=== PATIENT | female | born 1995 | race Caucasian/White ===

== ENCOUNTER 2022-08-03 08:00 | Outpatient (CLI) | payer OTHER ==
[2022-08-03 16:09] LABS: BILIRUBIN,URINE NEGATIVE (NEGATIVE); GLUCOSE, URINE (UA) NEGATIVE (NEGATIVE); KETONES,URINE (UA) NEGATIVE (NEGATIVE); LEUKOCYTE ESTERASE, URINE NEGATIVE (NEGATIVE); NITRITE,URINE NEGATIVE (NEGATIVE); OCCULT BLOOD,URINE NEGATIVE (NEGATIVE); PROTEIN,URINE NEGATIVE (NEGATIVE); UROBILINOGEN,URINE 0.2 (NORMAL) E.U./dL (NORMAL)
[2022-08-03 16:17] LABS: BACTERIA,URINE Few /HPF (None Seen); CLARITY,URINE CLEAR (CLEAR); RBC,URINE None Seen /HPF (0-5); SQUAMOUS EPITHELIAL CELL,UR RARE Squamous (<= Few); WBC,URINE 0-3 /HPF (0-5)
== END 2022-08-03 23:59 | disposition home or self-care (01) ==
LOC: LAB.WC 08:00
PROVIDERS: ATTEND Nurse Practitioner
DX: Z34.90 Encounter for supervision of normal pregnancy, unspecified, unspecified trimester (principal)
CPT/HCPCS: 81001; 87086

== ENCOUNTER 2022-08-22 20:49 | Outpatient (CLI) | payer OTHER ==
--- NOTE | 2022-08-23 16:59 | Ultrasound Report ---
PROCEDURE: OB First Trimester w/TV INDICATIONS: POSITIVE TEST OUTSIDE/PRIOR DATING DATA: Last menstrual period (LMP): 06/12/2022. LMP-based estimated date of delivery (MAGNUS): 03/19/2023. First dating scan (date and location): 08/22/2022. Estimated date of delivery (MAGNUS) from first dating scan: 03/25/2023. TECHNIQUE: Real-time scanning was performed of the fetus and maternal pelvic organs, with image documentation. Endovaginal scanning was also performed to better visualize the fetus and maternal ovaries. COMPARISON: None FINDINGS: Embryo: Single live intrauterine is identified with crown-rump length measuring 2.5 cm cor responding to 9 weeks 2 days. There is a small subchorionic hemorrhage measuring 1.4 x 0.6 x 1.1 cm. Heart rate: 167 bpm Measurement variability in dating: +/- 4 weeks by LMP, +/- 7 days by mean sac diameter (use before 6 weeks gestation if crown-rump length not able to be measured), +/- 5 days by crown-rump length (6-12 weeks gestation). Maternal organs: Ovaries demonstrate a right corpus luteal cyst.. IMPRESSION: Single live intrauterine with ultrasound gestational age of 9 weeks 2 days. Recommend follow-up imaging at 20-22 weeks for dates and anatomy. Reviewed by: Temitope Ortiz MD on 08/23/2022 4:57 PM PDT Approved by: Temitope Ortiz MD on 08/23/2022 4:57 PM PDT Station ID: [id number]
== END 2022-08-22 20:50 | disposition home or self-care (01) ==
LOC: DI 20:49
PROVIDERS: ATTEND Nurse Practitioner
DX: Z34.91 Encounter for supervision of normal pregnancy, unspecified, first trimester (principal)

== ENCOUNTER 2022-08-25 08:00 | Outpatient (CLI) | payer OTHER ==
[2022-08-26 00:06] LABS: CHLAMYDIA TRACHOMATIS DNA NEGATIVE (NEGATIVE); NEISSERIA GONORRHOEAE DNA NEGATIVE (NEGATIVE); TRICHOMONAS VAGINALIS DNA NEGATIVE (NEGATIVE)
== END 2022-08-25 23:59 | disposition home or self-care (01) ==
LOC: LAB.WC 08:00
PROVIDERS: ATTEND Obstetrics & Gynecology
DX: Z11.3 Encounter for screening for infections with a predominantly sexual mode of transmission (principal)
CPT/HCPCS: 87491; 87591; 87661

== ENCOUNTER 2022-08-25 15:24 | Outpatient (CLI) | payer OTHER ==
[2022-08-25 15:41] LABS: BASOPHILS # (AUTO) 0.1 10^3/uL (0.0-0.1); BASOPHILS % (AUTO) 0.4 %; EOSINOPHILS # (AUTO) 0.2 10^3/uL (0.0-0.7); EOSINOPHILS % (AUTO) 1.1 %; HGB - HEMOGLOBIN 12.2 g/dL (12.0-16.0); LYMPHOCYTES # (AUTO) 3.1 10^3/uL (1.5-3.5); LYMPHOCYTES % (AUTO) 22.7 %; MEAN CORPUSCULAR VOLUME 88.1 fL (81.0-99.0); MEAN PLATELET VOLUME 8.9 fL (7.9-10.8); MONOCYTES # (AUTO) 0.7 10^3/uL (0.0-1.0); MONOCYTES % (AUTO) 5.2 %; NEUTROPHILS # (AUTO) 9.5 10^3/uL (1.5-6.6); NEUTROPHILS % (AUTO) 70.3 %; PLT - PLATELET COUNT 274 10^3/uL (130-450); RED CELL DISTRIBUTION WIDTH 12.3 % (12.0-15.0); WHITE BLOOD COUNT 13.5 x10^3/uL (4.8-10.8)
[2022-08-27 05:08] LABS: HCV AB Non Reactive (Non Reactive)
[2022-08-27 06:08] LABS: RPR Non Reactive (Non Reactive)
[2022-08-27 10:07] LABS: VARICELLA-ZOSTER AB IGG 1193 index (Immune >165)
[2022-08-28 02:06] LABS: HIV SCREEN 4TH GENERATION Non Reactive (Non Reactive)
[2022-08-28 08:09] LABS: HBsAG SCREEN Negative (Negative)
== END 2022-08-25 15:25 | disposition home or self-care (01) ==
LOC: LAB 15:24
PROVIDERS: ATTEND Nurse Practitioner
DX: Z34.90 Encounter for supervision of normal pregnancy, unspecified, unspecified trimester (principal)
CPT/HCPCS: 36415; 85025; 86592; 86762; 86787; 86803; 86850; 86900; 86901; 87340; 87389; 87491; 87591; 87661

== ENCOUNTER 2022-09-13 13:26 | Outpatient (CLI) | payer OTHER | END 2022-09-13 13:27 | disposition home or self-care (01) | LOC: LAB 13:26 | PROVIDERS: ATTEND Obstetrics & Gynecology | DX: Z36.89 Encounter for other specified antenatal screening (principal) ==

== ENCOUNTER 2022-10-20 16:30 | Outpatient (CLI) | payer OTHER ==
[2022-10-23 17:08] LABS: AFP MOM 0.91 (.); AFP VALUE 38.8 ng/mL (.); DIA MOM 0.71 (.); DIA VALUE 98.94 pg/mL (.); DSR (BY AGE) 1 IN 699 (.); DSR (SECOND TRIMESTER) 1 IN 5023 (.); GEST. AGE ON COLLECTION DATE 18.6 WEEKS (.); HCG MOM 1.19 (.); HCG VALUE 29097 mIU/mL (.); INSULIN DEP DIABETES No (.); OPEN SPINA BIFIDA RISK 1 IN 10000 (.); RACE Caucasian (.); RESULTS Report (.); TEST RESULTS *Screen Negative* (.); TRISOMY 18 RISK Not increased (.); UE3 MOM 0.87 (.); UE3 VALUE 1.35 ng/mL (.); WEIGHT 183 lbs (.)
== END 2022-10-20 16:31 | disposition home or self-care (01) ==
LOC: LAB 16:30
PROVIDERS: ATTEND Nurse Practitioner
DX: Z36.89 Encounter for other specified antenatal screening (principal); Z3A.18 18 weeks gestation of pregnancy
CPT/HCPCS: 36415; 81511

== ENCOUNTER 2022-11-06 14:57 | Outpatient (CLI) | payer OTHER ==
--- NOTE | 2022-11-06 19:36 | Ultrasound Report ---
PROCEDURE: OB Detailed Eval INDICATIONS: SUPERVISION OF OUTSIDE/PRIOR DATING DATA: Last menstrual period (LMP): 06/12/2022. LMP-based estimated date of delivery (MAGNUS): 03/19/2023. First dating scan (date and location): 08/22/2022. Estimated date of delivery (MAGNUS) from first dating scan: 03/25/2023. The below data below was generated using the ultrasound MAGNUS of 03/25/2023 TECHNIQUE: Real-time scanning was performed of the fetus, with image documentation and biometric measurements. COMPARISON: OB ultrasound 08/22/2022. FINDINGS: General: A single living intrauterine gestation is present. Presentation: Breech Placenta: Placental position is anterior, without previa. Amniotic fluid index: 13.9 cm, within normal limits for gestational age. Largest pocket 4.1 cm. heart rate: 152 beats per minute. Maternal cervical canal: 4.3 cm long; normal length is 2.5 cm or more. biometrics: Biparietal diameter: 4.7 cm, 20 weeks 0 days Head circumference: 17.7 cm, 20 weeks 1 day Abdominal circumference: 14.6 cm, 19 weeks 6 days Femur length: 3.3 cm, 20 weeks 2 days Estimated gestational age from initial scan: 20 weeks 1 day Composite gestational age from present scan: 20 weeks 1 day Estimated weight and percentile: 333 g, 43rd percentile. Measurement variability in biometric dating: +/- 10 days from 12-20 weeks gestation, +/- 2 weeks from 20-30 weeks gestation, +/- 3 weeks at 30 weeks gestation or later. Anatomic survey: Neuro: Ventricles are normal at less than 10 mm. Cisterna magna is normal at 3-11 mm. Cerebellum i s normal in size and morphology. Nuchal skin fold: Normal at less than 6 mm between 14 and 20 weeks gestational age. Face: Nose and lips, facial profile are normal. Spine: No evidence for spina bifida. Heart: 4-chambered heart is present, with normal ventricular outflow tracts. Diaphragm: Diaphragm is intact. Stomach: Left-sided stomach is present. Kidneys: No hydronephrosis. Normal is less than 5 mm in 2nd trimester, less than 7 mm in 3rd trimester. Cord: 3 vessel cord has orthotopic insertion. Bladder: Normal in size. Extremities: All 4 extremities are visualized. IMPRESSION: 1. Milton living intrauterine at 20 weeks 1 day based on today's ultrasound. This is con cordant with the first trimester ultrasound. There is expected interval growth. Fetus is in the 43rd percentile for weight. 2. Normal placenta and amniotic fluid. 3. Normal and complete anatomic survey. Reviewed by: Ruiz Rajan MD on 11/06/2022 7:35 PM PDT Approved by: Ruiz Rajan MD on 11/06/2022 7:35 PM PDT Station ID: [id number]
== END 2022-11-06 14:58 | disposition home or self-care (01) ==
LOC: DI 14:57
PROVIDERS: ATTEND Obstetrics & Gynecology
DX: Z34.92 Encounter for supervision of normal pregnancy, unspecified, second trimester (principal)

== ENCOUNTER 2022-12-19 10:17 | Outpatient (CLI) | payer OTHER ==
[2022-12-19 18:03] LABS: HCT - HEMATOCRIT 34.8 % (37.0-47.0); HGB - HEMOGLOBIN 11.4 g/dL (12.0-16.0); MEAN CORPUSCULAR HEMOGLOBIN 28.9 pg (27.0-31.0); MEAN CORPUSCULAR HGB CONC 32.8 g/dL (32.0-36.0); MEAN CORPUSCULAR VOLUME 88.3 fL (81.0-99.0); MEAN PLATELET VOLUME 9.3 fL (7.9-10.8); RED BLOOD COUNT 3.94 10^6/uL (4.20-5.40); RED CELL DISTRIBUTION WIDTH 12.5 % (12.0-15.0); WHITE BLOOD COUNT 13.8 x10^3/uL (4.8-10.8)
== END 2022-12-19 10:18 | disposition home or self-care (01) ==
LOC: LAB.N 10:17
PROVIDERS: ATTEND Obstetrics & Gynecology
DX: Z34.90 Encounter for supervision of normal pregnancy, unspecified, unspecified trimester (principal); Z36.89 Encounter for other specified antenatal screening
CPT/HCPCS: 36415; 82950; 85025; 85027

== ENCOUNTER 2023-03-08 08:00 | Outpatient (CLI) | payer OTHER ==
[2023-03-08 17:35] LABS: CREATININE,URINE 137.4 mg/dL; PROTEIN/CREATININE RATIO,URINE 0.2 (<=0.2)
== END 2023-03-08 23:59 | disposition home or self-care (01) ==
LOC: LAB 08:00
PROVIDERS: ATTEND Nurse Practitioner
DX: R03.0 Elevated blood-pressure reading, without diagnosis of hypertension (principal)
CPT/HCPCS: 82570; 84156

== ENCOUNTER 2023-03-14 21:39 | Outpatient (CLI) | payer OTHER ==
--- NOTE | 2023-03-15 13:07 | Ultrasound Report ---
PROCEDURE: OB F/U or Repeat INDICATIONS: UTERINE SIZE DATE DISCREPANCY OUTSIDE/PRIOR DATING DATA: Last menstrual period (LMP): 06/12/2022. LMP-based estimated date of delivery (MAGNUS): 03/19/2023. First dating scan (date and location): 08/22/2022. Estimated date of delivery (MAGNUS) from first dating scan: 03/25/2023. The below data below was generated using the ultrasound MAGNUS of 03/25/2023 TECHNIQUE: Real-time scanning was performed of the fetus, with image documentation and biometric measurements. Endovaginal scanning: Not performed. COMPARISON: 11/06/2022 FINDINGS: General: A single living intrauterine gestation is present. Presentation: Vertex Placenta: Placental position is anterior, without previa. Amniotic fluid index: 19.7 cm, within normal limits for gestational age. heart rate: 144 beats per minute. Maternal cervical canal not well visualized. biometrics: Biparietal diameter: 9.59 cm, 39 weeks 1 day Head circumference: 34.19 cm, 39 weeks 3 days Abdominal circumference: 35.95 cm, 39 weeks 6 days Femur length: 6.96 cm, 35 weeks 5 days Estimated gestational age from initial scan: 38 weeks 3 days Composite gestational age from present scan: 38 weeks 4 days Estimated weight and percentile: 3615.9 g, 76th percentile Measurement variability in biometric dating: +/- 10 days from 12-20 weeks gestation, +/- 2 weeks from 20-30 weeks gestation, +/- 3 weeks at 30 weeks gestation or more. Other: Not applicable. IMPRESSION: Single living intrauterine at 38 weeks 3 days, MAGNUS of 03/25/2023. Estimated weight of 3616 g, 76th percentile. Reviewed by: Wade Cheng on 03/15/2023 1:06 PM PDT Approved by: Wade Cheng on 03/15/2023 1:06 PM PDT Station ID: [id number]
== END 2023-03-14 21:40 | disposition home or self-care (01) ==
LOC: DI 21:39
PROVIDERS: ATTEND Nurse Practitioner
DX: O26.843 Uterine size-date discrepancy, third trimester (principal); Z3A.38 38 weeks gestation of pregnancy

== ENCOUNTER 2023-03-16 06:12 | Inpatient (IN) | payer OTHER ==
[2023-03-16] MEDS ORDERED: LACTATED RINGERS 1,000 ML ONE (06:36)
[2023-03-16] MEDS ORDERED: AMPICILLIN 2 GM VIAL IV ONE (06:41)
[2023-03-16] MEDS ORDERED: METHYLERGONOVINE 0.2 MG/ML VIAL IM PRN (06:48)
[2023-03-16] MEDS ORDERED: fentaNYL 100 MCG/2 ML VIAL IVP PRN (06:48)
[2023-03-16] MEDS ORDERED: SODIUM CHLORIDE FLUSH 0.9% 10 ML SYRINGE IVP PRN (06:48)
[2023-03-16] MEDS ORDERED: NIFEdipine 10 MG CAPSULE PO PRN (06:48)
[2023-03-16] MEDS ORDERED: miSOPROStoL 200 MCG TABLET BC PRN (06:48)
[2023-03-16] MEDS ORDERED: lidocaine 1% 20 ML MDV ID PRN (06:48)
[2023-03-16] MEDS ORDERED: TERBUTALINE 1 MG/ML VIAL SUBQ PRN (06:48)
[2023-03-16] MEDS ORDERED: OXYTOCIN 10 UNIT/ML VIAL IM PRN (06:48)
[2023-03-16] MEDS ORDERED: LABETALOL 20 MG/4 ML SYRINGE IVP PRN ×3 (06:48)
[2023-03-16] MEDS ORDERED: TRANEXAMIC ACID IN NACL 1,000 MG/100 ML BAG IV PRN (06:48)
[2023-03-16] MEDS ORDERED: CARBOPROST TROMETHAMINE 250 MCG/ML AMP IM PRN (06:48)
[2023-03-16] MEDS ORDERED: hydrALAZINE INJ 20 MG/ML VIAL IVP PRN ×2 (06:48)
[2023-03-16] MEDS ORDERED: miSOPROStoL 200 MCG TABLET PR PRN (06:48)
[2023-03-16] MEDS ORDERED: OXYTOCIN/SODIUM CHLORIDE 500 ML IV ONE (06:49)
[2023-03-16] MEDS ORDERED: lidocaine 1% 20 ML MDV ONE (06:49)
[2023-03-16] MEDS ORDERED: SODIUM CHLORIDE FLUSH 0.9% 10 ML SYRINGE IVP SCH (07:00)
[2023-03-16] MEDS ORDERED: MINERAL OIL LIGHT 10 ML ONE (07:00)
[2023-03-16 07:15] LABS: BASOPHILS # (AUTO) 0.1 10^3/uL (0.0-0.1); BASOPHILS % (AUTO) 0.3 %; EOSINOPHILS # (AUTO) 0.1 10^3/uL (0.0-0.7); EOSINOPHILS % (AUTO) 0.5 %; HCT - HEMATOCRIT 37.5 % (37.0-47.0); HGB - HEMOGLOBIN 12.3 g/dL (12.0-16.0); LYMPHOCYTES % (AUTO) 15.7 %; MEAN CORPUSCULAR HEMOGLOBIN 26.9 pg (27.0-31.0); MEAN CORPUSCULAR HGB CONC 32.8 g/dL (32.0-36.0); MEAN CORPUSCULAR VOLUME 81.9 fL (81.0-99.0); MEAN PLATELET VOLUME 9.6 fL (7.9-10.8); MONOCYTES # (AUTO) 0.8 10^3/uL (0.0-1.0); MONOCYTES % (AUTO) 4.3 %; NEUTROPHILS # (AUTO) 15.1 10^3/uL (1.5-6.6); NEUTROPHILS % (AUTO) 78.7 %; PLT - PLATELET COUNT 314 10^3/uL (130-450); RED BLOOD COUNT 4.58 10^6/uL (4.20-5.40); RED CELL DISTRIBUTION WIDTH 13.4 % (12.0-15.0); WHITE BLOOD COUNT 19.1 x10^3/uL (4.8-10.8)
[2023-03-16] MEDS: OXYTOCIN/SODIUM CHLORIDE 500 ML IV PRN ×2 (07:43→08:30)
[2023-03-16] MEDS: ACETAMINOPHEN 500 MG TABLET PO SCH (08:45)
[2023-03-16] MEDS ORDERED: IBUPROFEN 600 MG TABLET PO PRN (08:45)
[2023-03-16] MEDS ORDERED: ONDANSETRON ODT 4 MG TABLET TL PRN (08:45)
[2023-03-16] MEDS ORDERED: WITCH HAZEL/GLYCERIN 1 PAD TOP PRN (08:45)
[2023-03-16] MEDS ORDERED: ONDANSETRON 4 MG/2 ML VIAL IVP PRN (08:45)
[2023-03-16] MEDS ORDERED: LACTATED RINGERS 1,000 ML IV PRN (08:45)
[2023-03-16] MEDS: IBUPROFEN 600 MG TABLET PO SCH ×3 (08:45→20:56)
--- NOTE | 2023-03-16 09:11 | DELIVERY NOTE ---
Delivery Note - Labor Labor: positive: Spontaneous - Delivery Method Delivery Method: positive: Vacuum assist - Presentation Presentation: positive: Vertex - Nuchal Cord Nuchal Cord: positive: Reduced - Anesthetic Anesthetic: positive: Lidocaine - 1% plain Volume: positive: Other (10cc) - Amniotic Fluid Description Amniotic Fluid Description: positive: Other (terminal meconium) - Vacuum Use Indication for Vacuum Use: positive: Suspicion of immediate or potential compromise Type of Vacuum Cup: positive: Cup: Mitchell Type, Cup: Soft Vacuum Extraction: positive: Successful Number of pop-offs: 0 - Episiotomy Type Episiotomy Type: positive: None - Laceration Laceration: positive: 2nd degree, Perineal - Suture Suture Type: positive: Vicryl Suture Size: positive: 2-0 - Delivery Outcome Delivery Outcome: positive: Livebirth - : positive: Placed in direct skin contact with mother, Stimulated, Orange used sex: positive: Female - Cord Cord: positive: 3 vessels - Placenta Placenta: positive: Intact, Spontaneous - Estimated Blood Loss Estimated Blood Loss (in cc): 1,250 - Post Delivery Events Post Delivery Events: positive: Hemorrhage, Shoulder dystocia - Delivery Comments (Free Text/Narrative) Delivery Comments (Free Text/Narrative): On 16 Mar 2023 at 0733 patient delivered a viable female infant over intact perineum. Prior to delivery baby had terminal bradycardia, FSE applied, terminal bradycardia verified, vacuum applied at 0731 and with coordinated pushing and no pop-offs infants head delivered at 0731. Nuchal noted and reduced. Baby LOT, shoulder dystocia noted and pt placed in jian position, suprapubic pressure applied towards maternal R, and R anterior shoulder delivered. Body delivered without difficulty, baby with tone and crying spontanenously, placed on maternal abdomen, apgars 7/9. Cord clamped and cut x2. Placenta delivered spontaneously at 0743 with immediate brisk red bleeding. PPH called and pitocin opened, fundal massage, methergine given. Cervix walked out to ensure no cervical laceration. Bleeding controlled with above. 2' laceration repaired with 2.0 vicryl. hemostatic after repair. additional fundal massage affirmed no further atony. QBL 1250. Both mom and baby recovering well. All counts correct. Stage 1: 5h1m Stage 2: 45m Stage 3: 10m
--- NOTE | 2023-03-16 13:06 | HISTORY & PHYSICAL EXAMINATION ---
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 ANC c/b: 1. depression / anxiety - on sertraline 2. anemia in -- HgB today 12+ -- on iron 3. GBS+, -- not treated adequately, peds aware 4. S>D at last appointment. ANL: A+/abneg/RI/RPRNR/HepBneg/HIVneg/GCCTnegneg/GBS positive PMH: denies PSH: denies POB: G1 PGYN: no h/o abnormal pap no h/o STDs no h/o problems with ovaries or uterus pt with regular monthly periods, when not Meds: PNV, All: NKDA Soc: neg x3, FOB mariann, he is here and present Fam: skin CA VSS NAD Conjunctiva pink, pale sclera +S1, S2, CTAB, no increased work of breathing Abd soft, NT, ND, visibly gravid at term [place]: cephalic EFM: 120mod oral + A cells no D cells, reactive [place]: Q3 Cx: 8cms per RN, was complete upon MD arrival Ext: neg CCE - HPI Current EDU 03/19/23 Gestation 39 Weeks and 4 Days 1 Vital Signs Temperature 98.6 F 03/16/23 10:19 Temperature 99.1 F 03/16/23 12:55 Heart Rate 74 03/16/23 12:55 Respiratory Rate 18 03/16/23 12:55 Blood Pressure 124/64 03/16/23 12:55 O2 Saturation If not protocol: Oxygen Flow, liters/minute Meds/Allgy - Allergies Allergies/Adverse Reactions: Allergies Allergy/AdvReac Type Severity Reaction Status Date / Time No Known Drug Allergies Allergy Verified 03/16/23 07:17 Physical - Abdominal Exam Vital Signs: Temp Pulse Resp BP Pulse Ox O2 Flow Rate 99.1 F 74 18 124/64 03/16/23 12:55 03/16/23 12:55 03/16/23 12:55 03/16/23 12:55 Plan for Labor - Plan For Labor I expect patient to be DC'd or transferred within 96 hours.: Yes Plan for Labor: Admit, delivery has occurred PCN planned for GBS, and was started though 4h not completed anticipate routine PP care complicated delivery - see delivery note events of delivery discussed with mom and . all questions answered.
[2023-03-16] MEDS: ACETAMINOPHEN 325 MG TABLET PO PRN ×2 (17:01→20:57)
[2023-03-16] MEDS: DOCUSATE SODIUM 100 MG CAPSULE PO SCH (20:56)
[2023-03-17] MEDS: ACETAMINOPHEN 325 MG TABLET PO PRN ×2 (01:43→05:55)
[2023-03-17] MEDS: IBUPROFEN 600 MG TABLET PO SCH ×4 (02:58→21:54)
[2023-03-17 05:26] LABS: BASOPHILS # (AUTO) 0.1 10^3/uL (0.0-0.1); BASOPHILS % (AUTO) 0.4 %; EOSINOPHILS # (AUTO) 0.2 10^3/uL (0.0-0.7); EOSINOPHILS % (AUTO) 1.1 %; HCT - HEMATOCRIT 24.1 % (37.0-47.0); HGB - HEMOGLOBIN 7.8 g/dL (12.0-16.0); LYMPHOCYTES # (AUTO) 3.5 10^3/uL (1.5-3.5); MEAN CORPUSCULAR HEMOGLOBIN 27.8 pg (27.0-31.0); MEAN CORPUSCULAR HGB CONC 32.4 g/dL (32.0-36.0); MEAN CORPUSCULAR VOLUME 85.8 fL (81.0-99.0); MEAN PLATELET VOLUME 9.5 fL (7.9-10.8); MONOCYTES # (AUTO) 0.9 10^3/uL (0.0-1.0); MONOCYTES % (AUTO) 6.7 %; NEUTROPHILS # (AUTO) 9.2 10^3/uL (1.5-6.6); NEUTROPHILS % (AUTO) 66.2 %; PLT - PLATELET COUNT 204 10^3/uL (130-450); RED BLOOD COUNT 2.81 10^6/uL (4.20-5.40); RED CELL DISTRIBUTION WIDTH 13.8 % (12.0-15.0); WHITE BLOOD COUNT 13.9 x10^3/uL (4.8-10.8)
[2023-03-17] MEDS: DOCUSATE SODIUM 100 MG CAPSULE PO SCH ×2 (08:57→21:07)
--- NOTE | 2023-03-17 09:03 | PROVIDER PROGRESS NOTE ---
Subjective - Prog Note Date Prog Note Date: 03/17/23 Prog Note Time: 09:01 - Subjective Subjective: Patient is day 1 status post vacuum-assisted vaginal delivery complicated by hemorrhage. Patient is doing well this morning. She is ambulating, tolerating regular diet, spontaneously voiding. She denies headache or feeling lightheaded. Objective - Vital Signs/Intake & Output Reviewed Vital Signs: Yes Vital Signs: Vital Signs x48h Temp Pulse Resp BP Pulse Ox 03/17/23 06:42 104 H 134/68 H 03/17/23 06:40 76 117/60 03/17/23 05:10 98.4 F 77 14 111/78 100 03/17/23 02:00 98.5 F 76 16 116/59 L 100 Intake & Output: Intake & Output 03/14/23 03/15/23 03/16/23 03/17/23 23:59 23:59 23:59 23:59 Intake Total 1275 1100 Output Total 650 Balance 625 1100 - Objective General Appearance: positive: No acute distress Respiratory: positive: Breath sounds nml Cardiovascular: positive: Regular rate & rhythm Abdomen: positive: Non-tender (Firm fundus below the umbilicus) Skin: positive: Color nml Extremities: positive: Non-tender, No pedal edema Neurologic/Psychiatric: positive: Oriented x3 (Lochia appropriate) - Lab Results Fish Bones: 03/17/23 05:10 Other Labs: Lab Results x24hrs 03/17/23 03/16/23 Range/Units 05:10 06:35 WBC 13.9 H (4.8-10.8) x10^3/uL RBC 2.81 L (4.20-5.40) 10^6/uL Hgb 7.8 L (12.0-16.0) g/dL Hct 24.1 L (37.0-47.0) % MCV 85.8 (81.0-99.0) fL MCH 27.8 (27.0-31.0) pg MCHC 32.4 (32.0-36.0) g/dL RDW 13.8 (12.0-15.0) % Plt Count 204 (130-450) 10^3/uL MPV 9.5 (7.9-10.8) fL Neut # (Auto) 9.2 H (1.5-6.6) 10^3/uL Lymph # (Auto) 3.5 (1.5-3.5) 10^3/uL Rolette # (Auto) 0.9 (0.0-1.0) 10^3/uL Eos # (Auto) 0.2 (0.0-0.7) 10^3/uL Baso # (Auto) 0.1 (0.0-0.1) 10^3/uL Absolute Nucleated RBC 0.00 x10^3/uL Nucleated RBC % 0.0 /100WBC Blood Type A POSITIVE Antibody Screen NEGATIVE Assessment/Plan - Problem List (1) hemorrhage Impression: Acute blood loss anemia: Offered IV iron transfusion versus p.o. iron, patient would like p.o. iron at this time. She is asymptomatic.
[2023-03-17] MEDS: ACETAMINOPHEN 500 MG TABLET PO SCH ×2 (10:37→17:44)
[2023-03-17] MEDS: FERROUS SULFATE 325 MG TABLET PO SCH (11:51)
[2023-03-17 15:58] VITALS: O2SAT 100
[2023-03-17] MEDS ORDERED: FERROUS SULFATE 325 MG TABLET PO SCH (17:00)
[2023-03-17] MEDS ORDERED: SERTRALINE 50 MG TABLET PO SCH (21:40)
[2023-03-18] MEDS: ACETAMINOPHEN 500 MG TABLET PO SCH ×2 (01:31→09:42)
[2023-03-18] MEDS: IBUPROFEN 600 MG TABLET PO SCH ×2 (04:00→06:15)
[2023-03-18] MEDS: FERROUS SULFATE 325 MG TABLET PO SCH (07:53)
[2023-03-18] MEDS: DOCUSATE SODIUM 100 MG CAPSULE PO SCH (09:41)
--- NOTE | 2023-03-18 09:49 | PROVIDER PROGRESS NOTE ---
Subjective - Prog Note Date Prog Note Date: 03/18/23 Prog Note Time: 09:47 - Subjective Subjective: Patient is day 2 status post vacuum-assisted vaginal delivery complicated by hemorrhage. Patient is doing well this morning. She is ambulating, tolerating regular diet, spontaneously voiding, passing flatus. Lochia is less than menses. She denies chest pain or shortness of breath. She is asymptomatic from an anemia standpoint. Objective - Vital Signs/Intake & Output Reviewed Vital Signs: Yes Vital Signs: Vital Signs x48h Temp Pulse Resp BP Pulse Ox 03/18/23 06:23 98.6 F 71 16 105/54 L 100 Intake & Output: Intake & Output 03/15/23 03/16/23 03/17/23 03/18/23 23:59 23:59 23:59 23:59 Intake Total 1275 1100 Output Total 650 Balance 625 1100 - Objective General Appearance: positive: No acute distress Respiratory: positive: Breath sounds nml Cardiovascular: positive: Regular rate & rhythm Abdomen: positive: Non-tender (Firm fundus below the umbilicus) Skin: positive: Color nml Neurologic/Psychiatric: positive: Oriented x3, Mood/affect nml - Lab Results Fish Bones: 03/17/23 05:10 Assessment/Plan - Problem List (1) hemorrhage Impression: Asymptomatic from acute blood loss anemia. Discussed continuing iron . Discussed signs and symptoms of depression. Patient advised to call or come in if experiencing any symptoms. Reviewed control options. Patient is breast-feeding and would like to do progesterone only pills. Discussed Depo-Provera, IUD, pills.
[2023-03-18 09:54] VITALS: BP 110/54
--- NOTE | 2023-03-18 10:16 | DISCHARGE SUMMARY ---
"Discharge Summary Admit Date: 03/16/23 Discharge Date: 03/18/23 Discharging Provider: Jessica Code Status: Attempt Resuscitation Condition at Discharge: Good Discharge Disposition: 01 Home, Self Care - DIAGNOSES Admission Diagnoses: Labor - HPI History of Present Illness: 28-year-old at 39 weeks gestation who presented with spontaneous rupture of membranes and in labor - CONSULTS | PROCEDURES Procedures: Normal spontaneous vaginal delivery - HOSPITAL COURSE Hospital Course: Patient is a 28-year-old at 39 weeks gestation who presented with s pontaneous rupture of membranes and in labor. She was 8 cm at admission and progressed to complete cervical dilation. She had a vacuum assisted vaginal delivery secondary to nonreassuring heart tracing. Patient had a hemorrhage which was treated with Pitocin and Methergine. She had an uncomplicated course and was asymptomatic from acute blood loss anemia. Patient was started on iron. She was discharged home on day 2 and was given progesterone only pills for contraception. - ALLERGIES Allergies/Adverse Reactions: Allergies Allergy/AdvReac Type Severity Reaction Status Date / Time No Known Drug Allergies Allergy Verified 03/16/23 07:17 - PHYSICAL EXAM AT DISCHARGE General Appearance: positive: No acute distress Respiratory: positive: Breath sounds nml Cardiovascular: positive: Regular rate & rhythm Abdomen: positive: Non-tender (firm fundus below the umbilicus) Skin: positive: Color nml Extremities: positive: No pedal edema Neurologic/Psychiatric: positive: Mood/affect nml - LABS Result Diagrams: 03/17/23 05:10"
--- NOTE | 2023-03-18 10:22 | Discharge Plan ---
Discharge Plan Disposition: 01 Home, Self Care Condition: Good Prescriptions: Docusate Sodium 100Mg Capsule [Colace 100Mg Capsule] 100 mg PO BID PRN #60 cap PRN Reason: Constipation Ferrous Sulfate [Feosol] 325 mg PO BIDWM #60 tab Norethindrone [Jencycla] 0.35 mg PO DAILY #1 pkt No Smoking: If you smoke, Please STOP! Call for help.
--- NOTE | 2023-03-18 12:42 | Labor Flowsheet ---
Labor Flowsheet Datetime Report Generated by CPN: 03/18/2023 12:41 Datetime: 03/18/2023 09:41 VITAL SIGNS NBP Sys/Saundra/Mean (mmHg): 110 : 54 : 68 Pulse: 86 Datetime: 03/16/2023 12:53 Stage of : Datetime: 03/16/2023 10:02 Membranes Ruptured Date/Time: 03/16/2023 04:00 Membranes Rupture Method: Spontaneous Amniotic Fluid Color: Light Meconium Amniotic Fluid Amount: Copious Station Vacuum/Forceps Applied: +2 Datetime: 03/16/2023 07:35 SpO2 (%): 100 Datetime: 03/16/2023 07:33 UTERINE ACTIVITY Monitor Mode: Palpation Datetime: 03/16/2023 07:31 Comments: removed FSE Vacuum: On Stage 2 Comments: head delivered Datetime: 03/16/2023 07:30 LaborFlag: Labor Datetime: 03/16/2023 07:24 Monitor Interventions for FHR: FSE Applied Datetime: 03/16/2023 07:20 Patient Position/Activity: Semi-Fowlers Pushing Position: Pushing Lithotomy Datetime: 03/16/2023 07:15 ASSESSMENT A Monitor Mode: Telemetry FHR Baseline Rate : 130 Variability: Moderate 6-25 bpm Decelerations: Early; Variable Actions for Decelerations: Provider Notified Category: Category II STAGE 2 Pushing: Coached on Pushing; Pt States too Tired to Push Pushing Progress: Ineffective Pushing Datetime: 03/16/2023 07:00 COMMUNICATION Communication: RN at Bedside; RN Reviewed Strip; Provider at Bedside Communication Comments: Came on shift to assist in delivery. Pt complete and pushing upon arrival. 3 RNs bedside with provider. Datetime: 03/16/2023 06:46 Station: 1 Exam by: Dr. Bernardo Vaginal Exam Comments: complete Datetime: 03/16/2023 06:43 Provider Reviewed Strip: Yes Datetime: 03/16/2023 06:40 MEDICATIONS Antibiotics: Start Antibiotics Datetime: 03/16/2023 06:39 Provider Notified (Name): Dr. Bernardo Datetime: 03/16/2023 06:30 PATIENT CARE IV/Blood Work: IV Started Datetime: 03/16/2023 06:27 PAIN Pain Scale: 8 Pain Type: Contraction Pain Relief Measures: Comfort Measures Pain Coping: Requesting Pain Medication or Epidural Comfort Measures: Breathing/Relaxation; Coaching Datetime: 03/16/2023 06:25 Membrane Status: Ruptured Membrane Comments: Pt and spouse stated ROM occured around 0430 this . Datetime: 03/16/2023 06:24 VAGINAL EXAM Dilatation (cm): 8.0 Effacement (%): 90 Vaginal Bleeding: Small Cervix, Consistency: Soft Cervix, Position: Posterior
== END 2023-03-18 12:35 | disposition home or self-care (01) | DRG 806 ==
LOC: WFO 06:12 → FBP 06:14 → WFO 06:29 → FBP 06:30
PROVIDERS: ADMIT Obstetrics & Gynecology; ATTEND Obstetrics & Gynecology Obstetrics
PROC: 10D07Z6 Extraction of Products of Conception, Vacuum, Via Natural or Artificial Opening (ICD-10-PCS; principal; 2023-03-16)
PROC: 0KQM0ZZ Repair Perineum Muscle, Open Approach (ICD-10-PCS; 2023-03-16)
DX: O99.02 Anemia complicating childbirth (principal); D62 Acute posthemorrhagic anemia; Z37.0 Single live birth; O98.513 Other viral diseases complicating pregnancy, third trimester; O72.1 Other immediate postpartum hemorrhage; O69.81X0 Labor and delivery complicated by cord around neck, without compression, not applicable or unspecified; O70.1 Second degree perineal laceration during delivery; O77.0 Labor and delivery complicated by meconium in amniotic fluid; O99.344 Other mental disorders complicating childbirth; F32.A Depression, unspecified; O99.824 Streptococcus B carrier state complicating childbirth; O76 Abnormality in fetal heart rate and rhythm complicating labor and delivery; O66.0 Obstructed labor due to shoulder dystocia; Z3A.39 39 weeks gestation of pregnancy; B00.9 Herpesviral infection, unspecified
CPT/HCPCS: 59409; 85025; 86850; 86900; 86901; A9270; J2210; J7120; 84443; 99215